=== PATIENT | male | born 1985 | race Caucasian/White ===

== ENCOUNTER 2018-09-03 08:50 | Day surgery (SDC) | payer OTHER ==
[~2018-09-03 08:50] MED LIST: LIDOCAINE HCL 1% MPF 30 SOL ONE; PROPOFOL 500 MG/50 ML EMU IV ONE
[2018-09-03 11:27] VITALS: O2SAT 99
[2018-09-03 11:40] VITALS: BP 115/67; PULSE 48; RESP 18; TEMP 97.1
== END 2018-09-03 12:01 | disposition home or self-care (01) | DRG 382 ==
LOC: SURG 08:50
PROVIDERS: ATTEND Internal Medicine Gastroenterology
DX: K22.70 Barrett's esophagus without dysplasia (principal); K44.9 Diaphragmatic hernia without obstruction or gangrene; L53.9 Erythematous condition, unspecified
CPT/HCPCS: 99001; J2001; J2704